=== PATIENT | female | born 1965 | race Caucasian/White ===

== ENCOUNTER 2023-03-20 16:15 | Emergency (ER) | payer OTHER, SELFPAY ==
[2023-03-20 16:20] VITALS: BP 133/66; PULSE 75; RESP 20; TEMP 36.6; O2SAT 95
[2023-03-20 16:37] VITALS: BP 133/66; PULSE 75; RESP 20; TEMP 36.6; O2SAT 95
--- NOTE | 2023-03-20 16:54 | ED.FEMALEGU ---
HPI - Female Genitourinary General Chief complaint: Urogenital-Female Stated complaint: poss uti Time Seen by Provider: 03/20/23 16:50 Source: patient, RN notes reviewed and old records reviewed Mode of arrival: ambulatory Limitations: no limitations History of Present Illness HPI Narrative: 57-year-old female who presents to [facility] with complaints of urinary symptoms which include burning with urination urgency, frequency, and also some loss of bladder control for the past 4-5 days. Patient reports she has taken azo for her symptoms. Patient denies any flank pain and any suprapubic lower abdominal discomfort. Patient denies any vaginal discharge or any itching or foul odor. Patient denies any fevers chills or sweats or any CVA tenderness MD elicited complaint: UTI Onset (ago): day(s) (4-5 dys) Location of symptoms: urethra Severity scale (1-10): 3 Quality of pain: burning Vaginal discharge: none Treatment prior to arrival: OTC urinary analgesics (AZO) Related Data Allergies Allergy/AdvReac Type Severity Reaction Status Date / Time lisinopril Allergy Unknown cough Verified 03/20/23 16:36 Review of Systems Review of Systems: CONSTITUTIONAL: Denies fever, chills, or sweats. CARDIOVASCULAR: Denies chest pain, palpitations, or edema. RESPIRATORY: Denies cough or dyspnea. GASTROINTESTINAL: Denies abdominal pain, nausea, vomiting, or diarrhea. GENITOURINARY: Reports dysuria, frequency, urgency. Denies flank pain or hematuria. SKIN: Denies rash or itching. MUSCULOSKELETAL: Denies back pain or myalgia. Denies CVA tenderness, NEUROLOGIC: Denies headache All systems reviewed & are unremarkable except as noted in HPI and below [facility] Past Medical History Medical History (Updated 03/22/23 @ 09:47 by Vicky Benson NP) Depression DVT (deep venous thrombosis) Hypothyroidism Low back pain Surgical History Surgical History H/O tubal ligation Hx of cholecystectomy Family History Family History Other Family history of coronary artery disease Hypertension Social History Social History Smoking status: Never smoker Second hand tobacco smoke exposure: No Alcohol intake: never Substance use: never Substance use type: does not use Lack of Transportation: No Lack of Food: Never True Current Housing: I Have Housing Concerned About Future Housing: No Difficulty Paying Gas/Electric Bills: YES Difficulty Paying for Meds: No Currently Unemployed: No Education: High School Diploma/GED Difficulty w/ Childcare or Family Care: No Living arrangements: with family Gender identity (if verbalized by the patient): Female Spiritual care concerns: No Agree to blood products: Yes Comments At time of signature, agree with nursing past medical, surgical, social and family history. There is no relevant family history pertinent to the presenting complaint Exam Narrative: GENERAL: Well-appearing, well-nourished, and in no acute distress. HEAD: Normocephalic, atraumatic. NECK: Supple.no lymphadenopathy CHEST: Clear to auscultation. No respiratory distress. HEART: Regular rate and rhythm. No murmur heard. Normal peripheral pulses. ABDOMEN: Soft, nontender, nondistended, normal active bowel sounds. No CVA tenderness dysuria with urgency frequency and loss of bladder control EXTREMITIES: Normal range of motion. No edema. SKIN: Warm, dry, no rash. NEURO: No focal deficits. Alert and oriented x3. Course Course Emergency Course: Patient is aware of diagnosis, understands and agrees to treatment plan.? Anticipatory guidance given.? Patient agrees to follow-up as directed and is aware of reasons to seek care at the emergency department. Portions of this record may have been created with voice recognition software Level of Care:
== END 2023-03-20 17:20 | disposition home or self-care (01) ==
PROVIDERS: Emergency Provider Registered Nurse; PCP Family Medicine
DX: N39.0 Urinary tract infection, site not specified (principal); F32.A Depression, unspecified; E03.9 Hypothyroidism, unspecified
CPT/HCPCS: 81003; 87077; 87086; 87186; 99213; G0463